=== PATIENT | male | born 1995 | race Caucasian/White ===

== ENCOUNTER 2018-08-29 07:37 | Emergency (ER) | payer SELFPAY ==
[~2018-08-29] VITALS: Ht 162.6 cm; Wt 83.9 kg
[2018-08-29 07:56] VITALS: BP 145/77
--- NOTE | 2018-08-29 08:14 | NUR ---
Patient ambulated to bed 8. RN evaluating patient at bedside.
--- NOTE | 2018-08-29 08:19 | NUR ---
SORE THROAT , FEVER X 1 WEEK, WENT TO PCP ON FRIDAY , GOT A SHOT( PT DOES NOT KNOW THE NAME) PAIN SCALE 7/10. DENIES N/V/D; AAOX4 WITH EVEN AND STEADY GAIT; LUNGS CLEAR BL; PT STATES TENT TO HAVE A FEVER LAST NIGHT. DENIES ANY FEVER, CP, SOB, OR COUGH AT THIS TIME; PATIENT STATES HIS SORE THROAT AND RIGHT-SIDED NECK PAIN OF 7/10 AT THIS TIME; PT IS APHASIC DUE TO THE SORE THROAT WITH VSS; NO FEVER AT THIS TIME. ERYTHEMA, EDEMA 2+, AND WHITE SPOTS NOTICED ON PT'S RIGHT-SIDED THROAT. PATIENT POSITIONED FOR COMFORT; HOB ELEVATED; BEDRAILS UP X1; BED DOWN. ER MD MADE AWARE OF PT STATUS.
--- NOTE | 2018-08-29 08:19 | NUR ---
Note undone in EDM - 08/29/18 at 0823 by MED SORE THROAT , FEVER X 1 WEEK, WENT TO PCP ON FRIDAY , GOT A SHOT( PT DOES NOT KNOW THE NAME) PAIN SCALE 7/10. NO FEVER AT THIS TIME. ERYTHEMA, EDEMA 2+, AND WHITE SPOTS NOTICED ON PT'S RIGHT-SIDED THROAT. DENIES N/V/D; AAOX4 WITH EVEN AND STEADY GAIT; LUNGS CLEAR BL; PT STATES TENT TO HAVE A FEVER LAST NIGHT. DENIES ANY FEVER, CP, SOB, OR COUGH AT THIS TIME; PATIENT STATES HIS SORE THROAT AND RIGHT-SIDED NECK PAIN OF 7/10 AT THIS TIME; VSS; PATIENT POSITIONED FOR COMFORT; HOB ELEVATED; BEDRAILS UP X1; BED DOWN. ER MD MADE AWARE OF PT STATUS.
[2018-08-29] MEDS ORDERED: DEXAMETHASONE 10 MG/ML VIAL IM ONE (08:30)
[2018-08-29] MEDS ORDERED: KETOROLAC 60 MG/2 ML VIAL IM ONE (08:30)
[2018-08-29] MEDS ORDERED: CLINDAMYCIN 600 MG/4 ML VIAL IM ONE (08:30)
[2018-08-29 09:56] VITALS: BP 145/82
--- NOTE | 2018-08-29 09:56 | NUR ---
Patient discharged with v/s stable. Written and verbal after care instructions given and explained. Pt's symptoms have been improved, and pt is able to talk. Patient alert, oriented and verbalized understanding of instructions. Ambulatory with steady gait. All questions addressed prior to discharge. Patient advised to follow up with PMD. Rx of Clindamycin and Prednisone given. Patient educated on indication of medication including possible reaction and side effects. Opportunity to ask questions provided and answered.
== END 2018-08-29 09:56 | disposition home or self-care (01) ==
LOC: MED 07:37
DX: J03.90 Acute tonsillitis, unspecified (principal)
CPT/HCPCS: 96372; 99283; J1100; J1885; J3490

== ENCOUNTER 2023-12-02 02:00 | Emergency (ER) | payer BC ==
[~2023-12-02] VITALS: Ht 162.6 cm; Wt 90.7 kg
[2023-12-02 02:29] VITALS: BP 132/80; PULSE 68; RESP 18; TEMP 98.3; O2SAT 98
[2023-12-02] MEDS ORDERED: CEPH-588 PO (05:06)
[2023-12-02] MEDS ORDERED: NAPR-337 PO (05:08)
== END 2023-12-02 05:10 | disposition home or self-care (01) ==
LOC: MED 02:00
DX: L03.012 Cellulitis of left finger (principal); Z79.899 Other long term (current) drug therapy
CPT/HCPCS: 99283